=== PATIENT | female | born 1990 | race Caucasian/White ===

== ENCOUNTER 2017-03-18 17:58 | Emergency (ER) | payer BC ==
[2017-03-18] MEDS ORDERED: Sodium Chloride 0.9% 10 ML Syringe FLUSH PRN (18:55)
[2017-03-18] MEDS ORDERED: Sodium Chloride 0.9% 1,000 ML IV ONE (18:55)
[2017-03-18] MEDS ORDERED: Ketorolac 30 MG/ML SDV IVPUSH ONE (18:55)
[2017-03-18] MEDS ORDERED: Acetaminophen/oxyCODONE 325-5 MG Tab PO ONE (20:57)
--- NOTE | 2017-03-18 21:04 | EDM.PDOC ---
ED HPI GENERAL MEDICAL PROBLEM - General Chief Complaint: Abdominal Pain Stated Complaint: PELVIC PAIN/FEVER Time Seen by Provider: 03/18/17 18:57 Source of Information: Reports: Patient History Limitations: Reports: No Limitations - History of Present Illness INITIAL COMMENTS - FREE TEXT/NARRATIVE: 26 year old female presents for evaluation and treatment of a fever and pelvic pain. Patient reports her symptoms first started about one week ago. Reports she has had a "fever" of 99.1 to 99.8 at home. Reports nothing over 99.8. Reports associated symptoms of fatigue, dysuria and dysmenorrhea. Menstrual cycle started about 1 week ago. Reports dysmenorerhea and menorrhagia. Reports right sided pelvic pain that radiates down her right inner thigh. States she has tried excedrine, tylenol and motrin without symptom relief. Patient reports she presented to the [facility] on Thursday. UA was done. No abnormalities were identified. She was discharged home. Patient is a . Unsure of blood type. Patient reports her menstrual cycle started about 1 week ago. Reports associated dysmenorrhea and menorrhagia. Currently on OCPs. Reports she has been on several different OCPs due to side effects. Has been on these OCPS since June. kennel attendant is Dr. Ramirez. Treatments AUTOMATION AND CONTROLS MANAGER: Reports: Other (see below) Other Treatments AUTOMATION AND CONTROLS MANAGER: tylenol yesterday Abdomen Pain Score (Numeric/FACES): 3 - Related Data Allergies Allergy/AdvReac Type Severity Reaction Status Date / Time No Known Allergies Allergy Verified 12/11/14 07:11 Home Meds: Home Meds Ibuprofen [Motrin] 600 mg PO Q4H PRN #0 tablet 12/12/14 [Rx] Acetaminophen/oxyCODONE [Percocet 325-5 MG] 1 tab PO Q6H PRN #5 tablet 03/18/17 [Rx] Control 1 tab PO DAILY 03/18/17 [History] Past Medical History Other Cardiovascular History: cardiac ablation November and feb 2014 Other OB/BYN History: Hx of preeclampsia in prior -1st child; lump removed fromo right breast benign - Past Surgical History GI Surgical History: Reports: Cholecystectomy Social & Family History - Tobacco Use Smoking Status *Q: Never Smoker Years of Tobacco use: 4 Used Tobacco, but Quit: Yes Month Tobacco Last Used: 11/2012 Second Hand Smoke Exposure: No - Caffeine Use Caffeine Use: Reports: Coffee, Soda - Recreational Drug Use Recreational Drug Use: No ED ROS GENERAL - Review of Systems Review Of Systems: See Below Constitutional: Reports: Fever, Fatigue GI/Abdominal: Denies: Abdominal Pain, Nausea, Vomiting : Reports: No Symptoms, Other (reports right sided pelvic pain, dysmenorrhea, menorrhagia). Denies: Dysuria ED EXAM, GI/ABD - Physical Exam Exam: See Below Exam Limited By: No Limitations General Appearance: Alert, WD/WN, No Apparent Distress Respiratory/Chest: No Respiratory Distress, Lungs Clear, Normal Breath Sounds Cardiovascular: Normal Peripheral Pulses, Regular Rate, Rhythm, No Murmur GI/Abdominal Exam: Normal Bowel Sounds, Soft, Non-Tender, Other (negative mcburnies sign) (Female) Exam: Deferred Neurological: Alert, Oriented, Normal Cognition Psychiatric: Normal Affect, Normal Mood Skin Exam: Warm, Dry, Normal Color Course - Vital Signs Last Recorded V/S: Last Vital Signs Temp 36.8 C 03/18/17 18:18 Pulse 113 H 03/18/17 18:18 Resp 20 03/18/17 18:18 BP Pulse Ox 100 03/18/17 18:18 Orthostatic Blood Pressure [ 133/86 Standing] Orthostatic Blood Pressure [ 135/91 Sitting] Orthostatic Blood Pressure [ 130/89 Supine] - Orders/Labs/Meds Labs: Laboratory Tests 03/18/17 03/18/17 03/18/17 Range/Units 19:10 19:15 19:15 WBC 7.71 (3.98-10.04) K/mm3 RBC 4.67 (3.98-5.22) M/mm3 Hgb 15.1 (11.2-15.7) gm/L Hct 43.4 (34.1-44.9) % MCV 92.9 (79.4-94.8) fl MCH 32.3 H (25.6-32.2) pg MCHC 34.8 (32.2-35.5) g/dl RDW Std Deviation 40.6 (36.4-46.3) fL Plt Count 305 (182-369) K/mm3 MPV 9.9 (9.4-12.3) fl Neut % (Auto) 68.8 (34.0-71.1) % Lymph % (Auto) 25.8 (19.3-51.7) % [place]ay % (Auto) 4.7 (4.7-12.5) % Eos % (Auto) 0.3 L (0.7-5.8) Baso % (Auto) 0.1 (0.1-1.2) % Neut # (Auto) 5.31 (1.56-6.13) K/mm3 Lymph # (Auto) 1.99 (1.18-3.74) K/mm3 [place]ay # (Auto) 0.36 (0.24-0.36) K/mm3 Eos # (Auto) 0.02 L (0.04-0.36) K/mm3 Baso # (Auto) 0.01 (0.01-0.08) K/mm3 Sodium 142 (136-145) mEq/L Potassium 3.4 L (3.5-5.1) mEq/L Chloride 104 (98-107) mEq/L Carbon Dioxide 26 (21-32) mEq/L Anion Gap 15.4 H (5-15) BUN 6 L (7-18) mg/dL Creatinine 1.0 (0.55-1.02) mg/dL Est Cr Clr Drug Dosing 79.81 mL/min Estimated GFR (MDRD) > 60 (>60) mL/min BUN/Creatinine Ratio 6.0 L (14-18) Glucose 104 (74-106) mg/dL Calcium 9.4 (8.5-10.1) mg/dL Total Bilirubin 0.6 (0.2-1.0) mg/dL AST 16 (15-37) U/L ALT 22 (14-59) U/L Alkaline Phosphatase 77 (46-116) U/L Total Protein 8.5 H (6.4-8.2) g/dl Albumin 4.8 (3.4-5.0) g/dl Globulin 3.7 gm/dL Albumin/Globulin Ratio 1.3 (1-2) TSH 3rd Generation 1.197 (0.358-3.74) uIU/mL HCG, Quant < 1.0 mIU/mL Urine Color Yellow (Yellow) Urine Appearance Clear (Clear) Urine pH 6.5 (5.0-8.0) Ur Specific [place] 1.015 (1.005-1.030) Urine Protein Negative (Negative) Urine Glucose (UA) Negative (Negative) Urine Ketones Trace H (Negative) Urine Occult Blood 1+ H (Negative) Urine Nitrite Negative (Negative) Urine Bilirubin Negative (Negative) Urine Urobilinogen 0.2 (0.2-1.0) Ur Leukocyte Esterase Negative (Negative) Urine RBC 0-5 (0-5) /hpf Urine WBC Not seen (0-5) /hpf Ur Epithelial Cells 0-5 (0-5) /hpf Urine Bacteria Rare (FEW) /hpf Urine Mucus Not seen (FEW) /hpf Meds: Medications Discontinued Medications Generic Name Dose Route Start Last Admin Trade Name Freq PRN Reason Stop Dose Admin Sodium Chloride 1,000 mls @ 999 mls/hr 03/18/17 18:55 03/18/17 19:13 Normal Saline IV 03/18/17 19:55 999 mls/hr ONETIME ONE Administration Ketorolac Tromethamine 30 mg 03/18/17 18:55 03/18/17 19:14 Toradol IVPUSH 03/18/17 18:56 30 mg ONETIME ONE Administration Oxycodone/Acetaminophen 1 tab 03/18/17 20:57 03/18/17 21:15 Percocet 325-5 Mg PO 03/18/17 20:58 1 tab ONETIME ONE Administration Oxycodone/Acetaminophen 5 tab 03/18/17 21:15 Percocet 325-5 Mg .ROUTE 03/18/17 21:16 .STK-MED ONE Sodium Chloride 10 ml 03/18/17 18:55 03/18/17 19:14 Saline Flush FLUSH 10 ml ASDIRECTED PRN Administration Keep Vein Open - Re-Assessments/Exams Free Text/Narrative Re-Assessment/Exam: 03/18/17 20:48 Discussed lab results with the patient. Is possible she has an ovarian cyst. I discussed obtaining an ultrasound with the patient. She would like to follow-up with her kennel attendant for this. States she needs to get home as the tube bending machine operator needs to leave. Reports she was mostly concerned she had sepsis with the fever and pain. Unlikely she has sepsis. I believe her pelvic pain is likely from a cyst. She reports she has been tested for STDs during her pregnancies. Will discharge home. Discharge instructions as documented. Departure - Departure Time of Disposition: 20:57 Disposition: Home, Self-Care 01 Condition: Fair Clinical Impression: Dysmenorrhea - Discharge Information Prescriptions: Acetaminophen/oxyCODONE [Percocet 325-5 MG] 1 tab PO Q6H PRN #5 tablet PRN Reason: Pain Instructions: Dysmenorrhea, [id number] Referrals: PCP,None [Primary Care Provider] - Forms: ED Department Discharge Additional Instructions: You were given medication in the ER that can affect your ability to drive or operate machinery. Do not drive or operate machinery within 12 hours or taking narcotic pain medication. Call Dr. Rocha's office at [phone] tomorrow to schedule follow-up with her. [id number] ibuprofen as needed for pain relief. For pain not relieved by ibuprofen may take percocet 1/2 to 1 tab PO every 6 hours as needed. Do not drive or operate machinery within 12 hours of taking percocet. Percocet can be habit forming, I recommend you take as few of these as needed to control your pain Also recommend using a heating pad for additional pain relief. Please return to the ER if your symptoms change or worsen.
[2017-03-18] MEDS ORDERED: Acetaminophen/oxyCODONE 325-5 MG Tab ONE (21:15)
== END 2017-03-18 21:18 | disposition home or self-care (01) ==
LOC: JD.ED 17:58
DX: N94.6 Dysmenorrhea, unspecified (principal)
CPT/HCPCS: 36415; 80053; 81001; 84443; 84702; 85025; 87086; 96361; 96374; 99284; A9270; J1885; J7040; J7050

== ENCOUNTER 2019-08-16 18:36 | Inpatient (IN) | payer OTHER ==
[~2019-08-16 18:36] MED LIST: Lidocaine 1.5% with EPINEPHrine 1:200,000 5 ML Amp ONE
[2019-08-16] MEDS ORDERED: Sodium Chloride 0.9% 10 ML Syringe FLUSH PRN (18:54)
[2019-08-16] MEDS ORDERED: Ondansetron 4 MG/2 ML SDV IVPUSH PRN (18:54)
[2019-08-16] MEDS ORDERED: Oxytocin/Lactated Ringers 10 UNIT/1,000 ML BAG IV SCH ×2 (19:00)
[2019-08-16] MEDS: Lactated Ringers 1,000 ML IV SCH ×2 (19:53→20:49)
[2019-08-16] MEDS ORDERED: ePHEDrine 50 MG/ML SDV IVPUSH PRN (20:07)
[2019-08-16] MEDS ORDERED: fentaNYL 100 MCG/2 ML SDV EPIDUR PRN (20:07)
[2019-08-16] MEDS ORDERED: diphenhydrAMINE 50 MG/ML SDV IVPUSH PRN (20:07)
[2019-08-16] MEDS ORDERED: Bupivacaine/fentaNYL/NS 100 ML Bag EPIDUR PRN (20:07)
--- NOTE | 2019-08-16 20:43 | PCM.PREANE ---
Preanesthetic Assessment - Anesthesia/Transfusion/Family Hx Anesthesia History: Prior Anesthesia Without Reaction Family History of Anesthesia Reaction: No Transfusion History: No Prior Transfusion(s) - Review of Systems General: No Symptoms Pulmonary: No Symptoms Cardiovascular: No Symptoms Gastrointestinal: No Symptoms Neurological: No Symptoms Other: Reports: None - Physical Assessment NPO Status Date: 08/16/19 NPO Status Time: 18:30 Vital Signs: Last Vital Signs Temp 98.4 F 08/16/19 19:21 Pulse 103 H 08/16/19 19:21 Resp 16 08/16/19 19:21 BP 149/76 H 08/16/19 19:21 Pulse Ox 100 08/16/19 19:21 ASA Class: 2 Mental Status: Alert & Oriented x3 Airway Class: Mallampati = 3 Dentition: Reports: Normal Dentition Thyro-Mental Finger Breadths: 3 Mouth Opening Finger Breadths: 3 ROM/Head Extension: Full Lungs: Clear to Auscultation, Normal Respiratory Effort Cardiovascular: Regular Rate, Regular Rhythm - Lab Values: Laboratory Last Values WBC 10.85 K/mm3 (3.98-10.04) H 08/16/19 19:34 RBC 3.81 M/mm3 (3.98-5.22) L 08/16/19 19:34 Hgb 11.4 gm/dl (11.2-15.7) 08/16/19 19:34 Hct 35.1 % (34.1-44.9) 08/16/19 19:34 MCV 92.1 fl (79.4-94.8) 08/16/19 19:34 MCH 29.9 pg (25.6-32.2) 08/16/19 19:34 MCHC 32.5 g/dl (32.2-35.5) 08/16/19 19:34 RDW Std Deviation 45.7 fL (36.4-46.3) 08/16/19 19:34 Plt Count 304 K/mm3 (182-369) 08/16/19 19:34 MPV 10.3 fl (9.4-12.3) 08/16/19 19:34 Creatinine 1.0 mg/dL (0.55-1.02) 08/16/19 19:34 Est Cr Clr Drug Dosing TNP 08/16/19 19:34 Estimated GFR (MDRD) > 60 mL/min (>60) 08/16/19 19:34 AST 15 U/L (15-37) 08/16/19 19:34 ALT 17 U/L (14-59) 08/16/19 19:34 Ur Random Creatinine 258.8 mg/dL (30.0-125.0) H 08/16/19 19:05 U Random Total Protein 16.2 mg/dL (0.0-11.8) H 08/16/19 19:05 Protein/Creatinin Ratio 62.6 mg/g (0-149) 08/16/19 19:05 - Allergies Allergies/Adverse Reactions: Allergies Allergy/AdvReac Type Severity Reaction Status Date / Time No Known Allergies Allergy Verified 12/11/14 07:11 - Acknowledgements Anesthesia Type Planned: Epidural Pt an Appropriate Candidate for the Planned Anesthesia: Yes Alternatives and Risks of Anesthesia Discussed w Pt/Guardian: Yes Pt/Guardian Understands and Agrees with Anesthesia Plan: Yes PreAnesthesia Questionnaire Cardiovascular History: Reports: Hypertension ( Induced) Other Cardiovascular History: cardiac ablation November and feb 2014 Other OB/BYN History: Hx of preeclampsia in prior -1st child; lump removed fromo right breast benign - Past Surgical History GI Surgical History: Reports: Cholecystectomy - HOME MEDS Home Medications: Home Meds Ibuprofen [Motrin] 600 mg PO Q4H PRN #0 tablet 12/12/14 [Rx] Acetaminophen/oxyCODONE [Percocet 325-5 MG] 1 tab PO Q6H PRN #5 tablet 03/18/17 [Rx] - CURRENT (IN HOUSE) MEDS Current Meds: Current Medications Diphenhydramine HCl (Benadryl) 25 mg IVPUSH Q6H PRN PRN Reason: pruritis Ephedrine Sulfate (Ephedrine Sulfate) 5 mg IVPUSH ASDIRECTED PRN PRN Reason: Hypotension Fentanyl (Sublimaze) 100 mcg EPIDUR Q3H PRN PRN Reason: Pain Fentanyl/Bupivacaine HCl (Fentanyl/Bupivacaine/Ns 2 Mcg-0.125% 100 Ml) 100 ml EPIDUR ASDIRECTED PRN PRN Reason: Pain Lactated Ringer's (Ringers, Lactated) 1,000 mls @ 40 mls/hr IV ASDIRECTED BREANNA Last Admin: 08/16/19 19:53 Dose: 999 mls/hr Oxytocin/Lactated Ringer's (Pitocin In Lr 10 Units/1,000 Ml) 10 unit in 1,000 mls @ 12 mls/hr IV TITRATE BREANNA; Protocol Last Admin: 08/16/19 19:53 Dose: 2 munits/min, 12 mls/hr Oxytocin/Lactated Ringer's (Pitocin In Lr 10 Units/1,000 Ml) 10 unit in 1,000 mls @ 500 mls/hr IV .CONTINUOUS BREANNA Ondansetron HCl (Zofran) 4 mg IVPUSH Q4H PRN PRN Reason: Nausea/Vomiting Sodium Chloride (Saline Flush) 10 ml FLUSH ASDIRECTED PRN PRN Reason: Keep Vein Open
--- NOTE | 2019-08-17 00:21 | PCM.DEL ---
L & D Note - General Info Date of Service: 08/17/19 - Delivery Note Labor: Induced by ARM, Induced by Oxytocin Delivery Outcome: Livebirth Infant Delivery Method: Spontaneous Vaginal Delivery-Single Infant Delivery Mode: Spontaneous Presentation: Left Occiput Anterior (HORTENCIA) Nuchal Cord: None Anesthesia Type: Epidural Amniotic Fluid Description: Clear Episiotomy Type: None Laceration: 2nd Degree, Perineal Suture type: Vicryl Suture size: 2-0 Placenta: Intact, Spontaneous Cord: 3 Vessels Estimated Blood Loss: 100 Resuscitation Needed: Yes [place]: Bulb Syringe, Stimulated, Warmed, [place] Used, Warmer Used Delivery Comments (Free Text/Narrative):: Patient found to be complete and began pushing. With maternal pushing effort head delivered from HORTENCIA presentation. No nuchal cord present. With gentle downward traction the shoulders and body delivered. placed on maternal abdomen. Cord clamped and cut. Cord blood obtained. Placenta allowed time to separate and expelled intact. Inspection of the perineum showed a 2nd degree laceration. This was repaired with a 2-0 vicryl in the typical fashion. - General Info Date of Service: 08/17/19 - Patient Data Vitals - Most Recent: Last Vital Signs Temp 36.9 C 08/16/19 19:21 Pulse 103 H 08/16/19 19:21 Resp 16 08/16/19 19:21 BP 149/76 H 08/16/19 19:21 Pulse Ox 100 08/16/19 19:21 Weight - Most Recent: 87.543 kg Lab Results Last 24 Hours: Laboratory Results - last 24 hr 08/16/19 08/16/19 08/16/19 Range/Units 19:05 19:34 19:34 WBC 10.85 H (3.98-10.04) K/mm3 RBC 3.81 L (3.98-5.22) M/mm3 Hgb 11.4 (11.2-15.7) gm/dl Hct 35.1 (34.1-44.9) % MCV 92.1 (79.4-94.8) fl MCH 29.9 (25.6-32.2) pg MCHC 32.5 (32.2-35.5) g/dl RDW Std Deviation 45.7 (36.4-46.3) fL Plt Count 304 (182-369) K/mm3 MPV 10.3 (9.4-12.3) fl Creatinine 1.0 (0.55-1.02) mg/dL Est Cr Clr Drug Dosing TNP Estimated GFR (MDRD) > 60 (>60) mL/min AST 15 (15-37) U/L ALT 17 (14-59) U/L Ur Random Creatinine 258.8 H (30.0-125.0) mg/dL U Random Total Protein 16.2 H (0.0-11.8) mg/dL Protein/Creatinin Ratio 62.6 (0-149) mg/g RPR (NONREACTIVE) Blood Type Gel Antibody Screen 08/16/19 08/16/19 Range/Units 19:34 19:34 WBC (3.98-10.04) K/mm3 RBC (3.98-5.22) M/mm3 Hgb (11.2-15.7) gm/dl Hct (34.1-44.9) % MCV (79.4-94.8) fl MCH (25.6-32.2) pg MCHC (32.2-35.5) g/dl RDW Std Deviation (36.4-46.3) fL Plt Count (182-369) K/mm3 MPV (9.4-12.3) fl Creatinine (0.55-1.02) mg/dL Est Cr Clr Drug Dosing Estimated GFR (MDRD) (>60) mL/min AST (15-37) U/L ALT (14-59) U/L Ur Random Creatinine (30.0-125.0) mg/dL U Random Total Protein (0.0-11.8) mg/dL Protein/Creatinin Ratio (0-149) mg/g RPR Non-reactive (NONREACTIVE) Blood Type A POSITIVE Gel Antibody Screen Negative Med Orders - Current: Current Medications Diphenhydramine HCl (Benadryl) 25 mg IVPUSH Q6H PRN PRN Reason: pruritis Ephedrine Sulfate (Ephedrine Sulfate) 5 mg IVPUSH ASDIRECTED PRN PRN Reason: Hypotension Fentanyl (Sublimaze) 100 mcg EPIDUR Q3H PRN PRN Reason: Pain Last Admin: 08/16/19 20:47 Dose: 100 mcg Fentanyl/Bupivacaine HCl (Fentanyl/Bupivacaine/Ns 2 Mcg-0.125% 100 Ml) 100 ml EPIDUR ASDIRECTED PRN PRN Reason: Pain Last Admin: 08/16/19 20:47 Dose: 100 ml Lactated Ringer's (Ringers, Lactated) 1,000 mls @ 40 mls/hr IV ASDIRECTED BREANNA Last Admin: 08/16/19 20:49 Dose: 999 mls/hr Oxytocin/Lactated Ringer's (Pitocin In Lr 10 Units/1,000 Ml) 10 unit in 1,000 mls @ 12 mls/hr IV TITRATE BREANNA; Protocol Last Titration: 08/16/19 22:45 Dose: 10 munits/min, 60 mls/hr Oxytocin/Lactated Ringer's (Pitocin In Lr 10 Units/1,000 Ml) 10 unit in 1,000 mls @ 500 mls/hr IV .CONTINUOUS BREANNA Ondansetron HCl (Zofran) 4 mg IVPUSH Q4H PRN PRN Reason: Nausea/Vomiting Sodium Chloride (Saline Flush) 10 ml FLUSH ASDIRECTED PRN PRN Reason: Keep Vein Open - Problem List & Annotations (1) 37 weeks gestation of SNOMED Code(s): 83880022 Code(s): Z3A.37 - 37 WEEKS GESTATION OF Status: Acute Current Visit: Yes (2) Gestational hypertension SNOMED Code(s): 021720452 Code(s): O13.9 - GESTATIONAL HTN W/O SIGNIFICANT PROTEINURIA, UNSP TRIMESTER Status: Acute Current Visit: Yes (3) Vaginal delivery SNOMED Code(s): 515209611 Code(s): O80 - ENCOUNTER FOR FULL-TERM UNCOMPLICATED DELIVERY Status: Acute Current Visit: No - Problem List Review Problem List Initiated/Reviewed/Updated: Yes - My Orders Last 24 Hours: My Active Orders 08/16/19 18:54 Patient Status [ADT] Routine Communication Order [RC] ASDIRECTED Communication Order [RC] ASDIRECTED Communication Order [RC] ASDIRECTED Communication Order [RC] ASDIRECTED Non Stress Test [RC] PER UNIT ROUTINE Notify Provider [RC] ASDIRECTED Notify Provider [RC] PRN Vaginal Exam [RC] ASDIRECTED Vital Signs [RC] ASDIRECTED Ondansetron [Zofran] 4 mg IVPUSH Q4H PRN Sodium Chloride 0.9% [Saline Flush] 10 ml FLUSH ASDIRECTED PRN Electronic Heart Tones Ext w TOCO [WOMSER] Routine Electronic Heart Tones Internal [WOMSER] Per Unit Routine Peripheral IV Insertion Adult [OM.PC] Routine Resuscitation Status Routine 08/16/19 18:55 Heart Tones [RC] ASDIRECTED Peripheral IV Care [RC] . DIRECTED Up ad Taina [RC] ASDIRECTED 08/16/19 19:00 Lactated Ringers [Ringers, Lactated] 1,000 ml IV ASDIRECTED Oxytocin/Lactated Ringers [Pitocin in LR 10 Units/1,000 ML] 10 unit in 1,000 ml IV .CONTINUOUS Oxytocin/Lactated Ringers [Pitocin in LR 10 Units/1,000 ML] 10 unit in 1,000 ml IV TITRATE 08/16/19 Dinner Regular Diet [DIET] - Assessment Assessment:: PPD#0 from - Plan Plan:: * Routine cares * Monitor BP's closely * Breast feeding * Discharge in 1-2 days
[2019-08-17] MEDS ORDERED: Witch Hazel Medicated Pads 40/Jar TOP PRN (00:38)
[2019-08-17] MEDS ORDERED: Acetaminophen 325 MG Tab PO PRN (00:38)
[2019-08-17] MEDS ORDERED: Docusate Sodium 100 MG Cap PO PRN (00:38)
[2019-08-17] MEDS ORDERED: Benzocaine/Menthol 20%-0.5% Spray 56 GM Canister TOP PRN (00:38)
[2019-08-17] MEDS: Ibuprofen 600 MG Tab PO PRN ×3 (02:52→20:17)
--- NOTE | 2019-08-17 07:43 | PCM48HPAN ---
Post Anesthesia Note - EVALUATION WITHIN 48HRS OF ANESTHETIC Vital Signs in Normal Range: Yes Patient Participated in Evaluation: Yes Respiratory Function Stable: Yes Airway Patent: Yes Cardiovascular Function Stable: Yes Hydration Status Stable: Yes Pain Control Satisfactory: Yes Nausea and Vomiting Control Satisfactory: Yes Mental Status Recovered: Yes Vital Signs: Last Vital Signs Temp 97.9 F 08/17/19 05:00 Pulse 76 08/17/19 05:00 Resp 16 08/17/19 05:00 BP 120/62 08/17/19 05:00 Pulse Ox 99 08/17/19 05:00 - COMMENTS/OBSERVATIONS Free Text/Narrative:: Patient is on her day 1. Stated understanding about possible backaches following epidural anesthesia. Denies any back soreness at this time. Explanation given about importance of avoiding back straining. Denies any headache or lightheadedness at this time. Comfortable now. Ambulating, no difficulty urinating.
--- NOTE | 2019-08-17 11:39 | PCM.LDHP ---
L&D History of Present Illness - General Date of Service: 08/16/19 Admit Problem/Dx: Admission Diagnosis/Problem Admission Diagnosis/Problem Gestational hypertension Source of Information: Patient History Limitations: Reports: No Limitations - History of Present Illness Introduction:: Patient is a 29 y/o at 37 4/7 wks who presents for IOL for gestational HTN. Overall doing well. Notes good FM. No signs of labor Pain Score: 3 - Related Data Allergies/Adverse Reactions: Allergies Allergy/AdvReac Type Severity Reaction Status Date / Time No Known Allergies Allergy Verified 08/16/19 23:13 Home Medications: Home Meds [id number]/Iron Fumarate/FA/DSS [ 19 Tablet] 1 each PO DAILY 08/16/19 [ History] Docusate Sodium [Colace] 100 mg PO BID PRN cap 08/17/19 [Rx] Ibuprofen [Motrin] 600 mg PO Q6H PRN tablet 08/17/19 [Rx] Past Medical History HEENT History: Reports: Impaired Vision, Other (See Below) Other HEENT History: Wears glasses Cardiovascular History: Reports: Arrhythmia (Hx of) Other Cardiovascular History: cardiac ablation November and feb 2014 : 3 Para: 2 LMP (Approximate): - Past Surgical History Cardiovascular Surgical History: Reports: Cardiac Ablation (x2) GI Surgical History: Reports: Cholecystectomy Female Surgical History: Reports: Breast Biopsy (lumpectomy) Musculoskeletal Surgical History: Reports: Other (See Below) (knee surgery) Social & Family History - Family History Family Medical History: Noncontributory - Tobacco Use Smoking Status *Q: Former Smoker Years of Tobacco use: 2 Used Tobacco, but Quit: Yes Month/Year Tobacco Last Used: 2017 - Caffeine Use Caffeine Use: Reports: Coffee, Soda - Alcohol Use Alcohol Use History: No - Recreational Drug Use Recreational Drug Use: No H&P Review of Systems - Review of Systems: Review Of Systems: See Below General: Reports: No Symptoms Pulmonary: Reports: No Symptoms Cardiovascular: Reports: No Symptoms Gastrointestinal: Reports: No Symptoms Genitourinary: Reports: No Symptoms Musculoskeletal: Reports: No Symptoms Psychiatric: Reports: No Symptoms L&D Exam - Exam Exam: See Below - Vital Signs Vital Signs: Last Vital Signs Temp 36.7 C 08/17/19 09:00 Pulse 74 08/17/19 09:00 Resp 16 08/17/19 09:00 BP 138/70 08/17/19 09:00 Pulse Ox 99 08/17/19 05:00 Weight: 87.543 kg - OB Specific Contraction Intensity: Irritability Movement: Active Heart Tones: Present Heart Tones per Min: 140 Heart Rate (FHR) Variability: Moderate (6-25 bmp) - Pathak Score Pathak Score Cervix Position: Midposition Pathak Score Consistency: Soft Pathak Score Effacement: 31-50% Pathak Score Dilation: 3-4 cm Pathak Score 's Station: -2 Pathak Score Total: 7 - Exam General: Alert, Oriented, Cooperative Lungs: Clear to Auscultation, Normal Respiratory Effort Cardiovascular: Regular Rate, Regular Rhythm GI/Abdominal Exam: Soft, Non-Tender Genitourinary: Normal external exam Extremities: Normal Inspection Skin: Warm, Dry, Intact - Patient Data Lab Results Last 24 hrs: Laboratory Results - last 24 hr 08/16/19 08/16/19 08/16/19 Range/Units 19:05 19:34 19:34 WBC 10.85 H (3.98-10.04) K/mm3 RBC 3.81 L (3.98-5.22) M/mm3 Hgb 11.4 (11.2-15.7) gm/dl Hct 35.1 (34.1-44.9) % MCV 92.1 (79.4-94.8) fl MCH 29.9 (25.6-32.2) pg MCHC 32.5 (32.2-35.5) g/dl RDW Std Deviation 45.7 (36.4-46.3) fL Plt Count 304 (182-369) K/mm3 MPV 10.3 (9.4-12.3) fl Creatinine 1.0 (0.55-1.02) mg/dL Est Cr Clr Drug Dosing TNP Estimated GFR (MDRD) > 60 (>60) mL/min AST 15 (15-37) U/L ALT 17 (14-59) U/L Ur Random Creatinine 258.8 H (30.0-125.0) mg/dL U Random Total Protein 16.2 H (0.0-11.8) mg/dL Protein/Creatinin Ratio 62.6 (0-149) mg/g RPR (NONREACTIVE) Blood Type Gel Antibody Screen 08/16/19 08/16/19 Range/Units 19:34 19:34 WBC (3.98-10.04) K/mm3 RBC (3.98-5.22) M/mm3 Hgb (11.2-15.7) gm/dl Hct (34.1-44.9) % MCV (79.4-94.8) fl MCH (25.6-32.2) pg MCHC (32.2-35.5) g/dl RDW Std Deviation (36.4-46.3) fL Plt Count (182-369) K/mm3 MPV (9.4-12.3) fl Creatinine (0.55-1.02) mg/dL Est Cr Clr Drug Dosing Estimated GFR (MDRD) (>60) mL/min AST (15-37) U/L ALT (14-59) U/L Ur Random Creatinine (30.0-125.0) mg/dL U Random Total Protein (0.0-11.8) mg/dL Protein/Creatinin Ratio (0-149) mg/g RPR Non-reactive (NONREACTIVE) Blood Type A POSITIVE Gel Antibody Screen Negative Result Diagrams: 08/16/19 19:34 08/16/19 19:34 - Problem List (1) 37 weeks gestation of SNOMED Code(s): 70048791 ICD Code: Z3A.37 - 37 WEEKS GESTATION OF Status: Acute Current Visit: Yes (2) Gestational hypertension SNOMED Code(s): 754212472 ICD Code: O13.9 - GESTATIONAL HTN W/O SIGNIFICANT PROTEINURIA, UNSP TRIMESTER Status: Acute Current Visit: Yes Qualifiers: Trimester: third trimester Qualified Code(s): O13.3 - Gestational [ -induced] hypertension without significant proteinuria, third trimester Problem List Initiated/Reviewed/Updated: Yes Orders Last 24hrs: Active Orders 24 hr Category Date Time Status Activity as Tolerated [RC] PER UNIT ROUTINE Care 08/17/19 00:38 Active Heart Tones [RC] ASDIRECTED Care 08/16/19 18:55 Inactive Up ad [place]aina [RC] ASDIRECTED Care 08/17/19 00:38 Active Vaginal Exam [RC] ASDIRECTED Care 08/16/19 18:54 Inactive Vital Signs [RC] ASDIRECTED Care 08/17/19 00:38 Active Regular Diet [DIET] Diet 08/17/19 Breakfast Active Acetaminophen [Tylenol] Med 08/17/19 00:38 Active 650 mg PO Q4H PRN Benzocaine/Menthol [Dermoplast Pain Relief [place]] Med 08/17/19 00:38 Active See Dose Instructions TOP ASDIRECTED PRN Docusate Sodium [Colace] Med 08/17/19 00:38 Active 100 mg PO BID PRN Ibuprofen [Motrin] Med 08/17/19 00:38 Active 600 mg PO Q6H PRN witch Shell [Tucks] Med 08/17/19 00:38 Active 1 pad TOP ASDIRECTED PRN Assess Lochia [WOMSER] Per Unit Routine Oth 08/17/19 00:38 Ordered Assess Uterine Involution [WOMSER] Per Unit Routine Oth 08/17/19 00:38 Ordered Breast Pump [WOMSER] Per Unit Routine Oth 08/17/19 00:38 Ordered Heat Therapy [OM.PC] PRN Oth 08/17/19 00:38 Ordered Heat Therapy [OM.PC] PRN Oth 08/18/19 00:38 Ordered Ice Therapy [OM.PC] Per Unit Routine Oth 08/17/19 00:38 Ordered Perineal Care [OM.PC] Per Unit Routine Oth 08/17/19 00:38 Ordered Peripheral IV Discontinue [OM.PC] Routine Oth 08/17/19 00:38 Ordered Sitz Bath [OM.PC] Per Unit Routine Oth 08/17/19 00:38 Ordered Resuscitation Status Routine Resus Stat 08/16/19 18:54 Ordered Medication Orders Acetaminophen (Tylenol) 650 mg PO Q4H PRN PRN Reason: mild pain or fever Benzocaine/Menthol (Dermoplast Pain Relief [place]) 0 gm TOP ASDIRECTED PRN PRN Reason: Perineal Comfort Measure Last Admin: 08/17/19 02:17 Dose: 1 container Docusate Sodium (Colace) 100 mg PO BID PRN PRN Reason: Constipation Ibuprofen (Motrin) 600 mg PO Q6H PRN PRN Reason: Mild pain or fever Last Admin: 08/17/19 02:52 Dose: 600 mg Witch [place] (Tucks) 1 pad TOP ASDIRECTED PRN PRN Reason: Perineal Comfort Measure Last Admin: 08/17/19 02:16 Dose: 1 container Assessment/Plan Comment:: * Labs including preeclamptic evaluation * GBS negative * AROM and pitocin * Pain management per patient preference * Anticipate
[2019-08-18] MEDS: Ibuprofen 600 MG Tab PO PRN (02:01)
[2019-08-18 03:14] VITALS: BP 110/58; PULSE 84
--- NOTE | 2019-08-18 05:40 | PCM.DCSUM1 ---
Discharge Summary - Discharge Data Discharge Date: 08/18/19 Discharge Disposition: Home, Self-Care 01 Condition: Good - Referral to Home Health Primary Care Physician: Adrienne Nur MD - Discharge Diagnosis/Problem(s) (1) 37 weeks gestation of SNOMED Code(s): 98695046 ICD Code: Z3A.37 - 37 WEEKS GESTATION OF Status: Acute (2) Gestational hypertension SNOMED Code(s): 702932788 ICD Code: O13.9 - GESTATIONAL HTN W/O SIGNIFICANT PROTEINURIA, UNSP TRIMESTER Status: Acute Qualifiers: Trimester: third trimester Qualified Code(s): O13.3 - Gestational [ -induced] hypertension without significant proteinuria, third trimester (3) Vaginal delivery SNOMED Code(s): 532324866 ICD Code: O80 - ENCOUNTER FOR FULL-TERM UNCOMPLICATED DELIVERY Status: Acute - Patient Summary/Data Complications: None Consults: None Recommended Follow-up Testing/Procedures: Follow up in 1 week for BP check, 3 weeks for check Hospital Course: Patient is a 29 y/o who presented at 37 4/7 wks for IOL for gestational HTN. IOL done with pitocin and AROM. She progressed well to complete dilation and underwent an uncomplicated . See delivery note. BP's normal. Was discharged home on PPD#1 - Patient Instructions Diet: Regular Diet as Tolerated Activity: As Tolerated Activity, Other: Pelvic rest for 6 weeks Driving: May Drive Today Showering/Bathing: May Shower Showering/Bathing, Other: May Bathe Notify Provider of: Fever, Increased Pain, Swelling and Redness, Drainage, Nausea and/or Vomiting - Discharge Plan *PRESCRIPTION DRUG MONITORING PROGRAM REVIEWED*: No *COPY OF PRESCRIPTION DRUG MONITORING REPORT IN PATIENT FR[place]ISCO: No Home Medications: Home Meds [id number]/Iron Fumarate/FA/DSS [ 19 Tablet] 1 each PO DAILY 08/16/19 [ History] Docusate Sodium [Colace] 100 mg PO BID PRN cap 08/17/19 [Rx] Ibuprofen [Motrin] 600 mg PO Q6H PRN tablet 08/17/19 [Rx] Patient Handouts: Vaginal Delivery, Care After Referrals: Adrienne Nur MD [Primary Care Provider] - ([address] weeks for check with Dr. Nur Nurse only BP check in 1 week - [place]) - Discharge Summary/Plan Comment DC Time >30 min.: No - Patient Data Vitals - Most Recent: Last Vital Signs Temp 36.7 C 08/18/19 02:02 Pulse 84 08/18/19 02:02 Resp 14 08/18/19 02:02 BP 110/58 L 08/18/19 02:02 Pulse Ox 96 08/18/19 02:02 Weight - Most Recent: 87.543 kg I&O - Last 24 hours: Intake & Output 08/17/19 08/17/19 08/18/19 14:59 22:59 06:59 Intake Total 120 320 Balance 120 320 Med Orders - Current: Current Medications Acetaminophen (Tylenol) 650 mg PO Q4H PRN PRN Reason: mild pain or fever Benzocaine/Menthol (Dermoplast Pain Relief [place]) 0 gm TOP ASDIRECTED PRN PRN Reason: Perineal Comfort Measure Last Admin: 08/17/19 02:17 Dose: 1 container Docusate Sodium (Colace) 100 mg PO BID PRN PRN Reason: Constipation Ibuprofen (Motrin) 600 mg PO Q6H PRN PRN Reason: Mild pain or fever Last Admin: 08/18/19 02:01 Dose: 600 mg Witch [place] (Tucks) 1 pad TOP ASDIRECTED PRN PRN Reason: Perineal Comfort Measure Last Admin: 08/17/19 02:16 Dose: 1 container Discontinued Medications Diphenhydramine HCl (Benadryl) 25 mg IVPUSH Q6H PRN PRN Reason: pruritis Ephedrine Sulfate (Ephedrine Sulfate) 5 mg IVPUSH ASDIRECTED PRN PRN Reason: Hypotension Fentanyl (Sublimaze) 100 mcg EPIDUR Q3H PRN PRN Reason: Pain Last Admin: 08/16/19 20:47 Dose: 100 mcg Fentanyl/Bupivacaine HCl (Fentanyl/Bupivacaine/Ns 2 Mcg-0.125% 100 Ml) 100 ml EPIDUR ASDIRECTED PRN PRN Reason: Pain Last Admin: 08/16/19 20:47 Dose: 100 ml Lactated Ringer's (Ringers, Lactated) 1,000 mls @ 40 mls/hr IV ASDIRECTED BREANNA Last Admin: 08/16/19 20:49 Dose: 999 mls/hr Oxytocin/Lactated Ringer's (Pitocin In Lr 10 Units/1,000 Ml) 10 unit in 1,000 mls @ 12 mls/hr IV TITRATE BREANNA; Protocol Last Titration: 08/16/19 22:45 Dose: 10 munits/min, 60 mls/hr Oxytocin/Lactated Ringer's (Pitocin In Lr 10 Units/1,000 Ml) 10 unit in 1,000 mls @ 500 mls/hr IV .CONTINUOUS BREANNA Lidocaine/Epinephrine (Xylocaine-Mpf 1.5% W/Epinephrine 1:200,000) 5 ml .ROUTE .STK-MED ONE Stop: 08/16/19 00:01 Ondansetron HCl (Zofran) 4 mg IVPUSH Q4H PRN PRN Reason: Nausea/Vomiting Sodium Chloride (Saline Flush) 10 ml FLUSH ASDIRECTED PRN PRN Reason: Keep Vein Open
--- NOTE | 2019-08-18 05:40 | PCM.PNPP ---
- General Info Date of Service: 08/18/19 Functional Status: Reports: Pain Controlled, Tolerating Diet, Ambulating, Urinating - Review of Systems General: Reports: No Symptoms Pulmonary: Reports: No Symptoms Cardiovascular: Reports: No Symptoms Gastrointestinal: Reports: No Symptoms Genitourinary: Reports: No Symptoms Musculoskeletal: Reports: No Symptoms Neurological: Reports: No Symptoms - Patient Data Vital Signs - Most Recent: Last Vital Signs Temp 36.7 C 08/18/19 02:02 Pulse 84 08/18/19 02:02 Resp 14 08/18/19 02:02 BP 110/58 L 08/18/19 02:02 Pulse Ox 96 08/18/19 02:02 Weight - Most Recent: 87.543 kg I&O - Last 24 Hours: Intake & Output 08/17/19 08/17/19 08/18/19 14:59 22:59 06:59 Intake Total 120 320 Balance 120 320 Med Orders - Current: Current Medications Acetaminophen (Tylenol) 650 mg PO Q4H PRN PRN Reason: mild pain or fever Benzocaine/Menthol (Dermoplast Pain Relief [place]) 0 gm TOP ASDIRECTED PRN PRN Reason: Perineal Comfort Measure Last Admin: 08/17/19 02:17 Dose: 1 container Docusate Sodium (Colace) 100 mg PO BID PRN PRN Reason: Constipation Ibuprofen (Motrin) 600 mg PO Q6H PRN PRN Reason: Mild pain or fever Last Admin: 08/18/19 02:01 Dose: 600 mg Witch [place] (Tucks) 1 pad TOP ASDIRECTED PRN PRN Reason: Perineal Comfort Measure Last Admin: 08/17/19 02:16 Dose: 1 container Discontinued Medications Diphenhydramine HCl (Benadryl) 25 mg IVPUSH Q6H PRN PRN Reason: pruritis Ephedrine Sulfate (Ephedrine Sulfate) 5 mg IVPUSH ASDIRECTED PRN PRN Reason: Hypotension Fentanyl (Sublimaze) 100 mcg EPIDUR Q3H PRN PRN Reason: Pain Last Admin: 08/16/19 20:47 Dose: 100 mcg Fentanyl/Bupivacaine HCl (Fentanyl/Bupivacaine/Ns 2 Mcg-0.125% 100 Ml) 100 ml EPIDUR ASDIRECTED PRN PRN Reason: Pain Last Admin: 08/16/19 20:47 Dose: 100 ml Lactated Ringer's (Ringers, Lactated) 1,000 mls @ 40 mls/hr IV ASDIRECTED BREANNA Last Admin: 08/16/19 20:49 Dose: 999 mls/hr Oxytocin/Lactated Ringer's (Pitocin In Lr 10 Units/1,000 Ml) 10 unit in 1,000 mls @ 12 mls/hr IV TITRATE BREANNA; Protocol Last Titration: 08/16/19 22:45 Dose: 10 munits/min, 60 mls/hr Oxytocin/Lactated Ringer's (Pitocin In Lr 10 Units/1,000 Ml) 10 unit in 1,000 mls @ 500 mls/hr IV .CONTINUOUS BREANNA Lidocaine/Epinephrine (Xylocaine-Mpf 1.5% W/Epinephrine 1:200,000) 5 ml .ROUTE .[facility]-MED ONE Stop: 08/16/19 00:01 Ondansetron HCl (Zofran) 4 mg IVPUSH Q4H PRN PRN Reason: Nausea/Vomiting Sodium Chloride (Saline Flush) 10 ml FLUSH ASDIRECTED PRN PRN Reason: Keep Vein Open - Interaction Disposition, : [place] in Room with Family Interaction: Holding Feeding: Breastfed Infant; Nursed Well Support Person: - Recovery Exam Fundal Tone: Firm Fundal Level: 1 Fingerbreadths Below Umbilicus Fundal Placement: Midline Lochia Amount: Small Lochia Color: Rubra/Red Perineum Description: Edematous, Other (see below) Other Perinuem Description: second degree with repair Bladder Status: Voiding Urinary Elimination: Other (see below) Other Urinary Elimination, : Needs to void - Exam General: Alert, Oriented, Cooperative GI/Abdominal Exam: Soft, Non-Tender Extremities: Normal Inspection - Problem List & Annotations (1) 37 weeks gestation of SNOMED Code(s): 28255983 Code(s): Z3A.37 - 37 WEEKS GESTATION OF Status: Acute (2) Gestational hypertension SNOMED Code(s): 163713632 Code(s): O13.9 - GESTATIONAL HTN W/O SIGNIFICANT PROTEINURIA, UNSP TRIMESTER Status: Acute Qualifiers: Trimester: third trimester Qualified Code(s): O13.3 - Gestational [ -induced] hypertension without significant proteinuria, third trimester (3) Vaginal delivery SNOMED Code(s): 889778540 Code(s): O80 - ENCOUNTER FOR FULL-TERM UNCOMPLICATED DELIVERY Status: Acute - Problem List Review Problem List Initiated/Reviewed/Updated: Yes - My Orders Last 24 Hours: My Active Orders 08/17/19 Breakfast Regular Diet [DIET] 08/18/19 00:38 Heat Therapy [OM.PC] PRN 08/18/19 05:39 Ready for Discharge [RC] PER UNIT ROUTINE - Assessment Assessment:: PPD#1 from - Plan Plan:: * Routine cares * Breast feeding * BP's appropriate since delivery. Will need 1 week BP check * Discharge home today
== END 2019-08-18 11:10 | disposition home or self-care (01) | DRG 807 ==
LOC: JD.OB 18:36 → OBSVTOIN 08-17 00:08 → JD.MS 08-17 00:09 → JD.OB 08-17 14:18
PROVIDERS: ADMIT Obstetrics & Gynecology; ATTEND Obstetrics & Gynecology
PROC: 10E0XZZ Delivery of Products of Conception, External Approach (ICD-10-PCS; principal; 2019-08-17)
PROC: 0KQM0ZZ Repair Perineum Muscle, Open Approach (ICD-10-PCS; 2019-08-17)
PROC: 10907ZC Drainage of Amniotic Fluid, Therapeutic from Products of Conception, Via Natural or Artificial Opening (ICD-10-PCS; 2019-08-17)
PROC: 3E033VJ Introduction of Other Hormone into Peripheral Vein, Percutaneous Approach (ICD-10-PCS; 2019-08-17)
PROC: 3E0R3BZ Introduction of Anesthetic Agent into Spinal Canal, Percutaneous Approach (ICD-10-PCS; 2019-08-17)
DX: O13.4 Gestational [pregnancy-induced] hypertension without significant proteinuria, complicating childbirth (principal); Z37.0 Single live birth; Z3A.37 37 weeks gestation of pregnancy; O70.1 Second degree perineal laceration during delivery
CPT/HCPCS: 36415; 51702; 59025; 59409; 82565; 82570; 84156; 84450; 84460; 85027; 86592; 86850; 86900; 86901; A9270-GY; J2590; J3010; J7120